=== PATIENT | male | born 1955 | race Caucasian/White ===

== ENCOUNTER 2023-12-19 14:47 | Inpatient (IN) | payer MEDICARE, OTHER, SELFPAY ==
[2023-12-19 12:19] VITALS: BP 92/58
--- NOTE | 2023-12-19 13:11 | ED.GENMED ---
History of Present Illness
General
Chief Complaint: Abdominal Symptoms
Source: patient
Exam Limitations: none
Time Seen by Provider: 12/19/23 12:53
Nursing documentation reviewed up to this point in time: agreed with
Travel History
Have you had any contact with someone who has COVID-19?: No
Do you have any symptoms of coronavirus? Fever > 100 degrees, chills, cough, shortness of breath, sore throat, loss of taste or smell, muscle aches, or headache?: No
History of Present Illness
History of Present Illness:
68-year-old male presents emergency room complaining of diarrhea for the past week. He is having multiple loose bowel movements per day. Watery, nonbloody
Past History
Past History
ED Past Medical History: HTN, Hypercholesterolemia, NIDDM and Psychiatric
ED Past Surgical History: None
Social History
Tobacco: Non-smoker
Alcohol: Daily
Drug: None
Personal:
Living: alone
Review of Systems
Review of Systems
Allergies reviewed?: Yes
All Other Systems: Not applicable
Constitutional: Reports no symptoms; Denies fever
EENT: Reports no symptoms
Respiratory: Reports no symptoms
Cardiac: Reports no symptoms
ABD/GI: Reports diarrhea; Denies abdominal pain
: Reports no symptoms
Musculoskeletal: Reports no symptoms
Skin: Reports no symptoms
Neurological: Reports no symptoms
Endocrine: Reports no symptoms
Hematologic/Lymphatic: Reports no symptoms
Psychiatric: Reports no symptoms
Phy Exam
Physical Exam
Physical Exam:
Physical Exam
General: blood pressure 92/58 afebrile, elevated BMI
Neck: supple. no meningeal signs. normal posterior pharynx
Heart: s1/s2 tachycardia, no murmur. equal radial
pulses.
HEENT: Pupils equal round reactive to light, EOMI
Lungs: no acute respiratory distress. clear bilaterally
Abdomen: normal bowel sounds. not tender. no CVAT
Neuro: alert and oriented. no focal neurological deficits cranial nerves II through XII intact
Skin: no rash
Psychiatric: well kept. interactive and cooperative
Extremities: no edema. no calf tenderness. negative homans. good distal pulses
Course
Orders/Labs/Results
Orders:
Orders
12/19/23 12:54
IV Insert/Care/Rem.- Treatment PRN
STOOL [C difficile Antigen & Toxins] Urgent
SATYA Source: Feces/Stool
Specimen Description:
Stool Culture Urgent
SATYA Source: Feces/Stool
Specimen Description:
12/19/23 12:56
IV Insert/Care/Rem.- Treatment PRN
12/19/23 13:12
Complete Blood Count/With Diff Urgent
Comprehensive Metabolic Panel Urgent
Magnesium Urgent
12/19/23 14:08
0.9% Sodium Chloride 1000 ml [Nss] 1,000 ml IV BOLUS
Abnormal Lab Results
12/19/23
13:12
MPV 10.7 H fL
(7.4-10.4)
Absolute Neuts (auto) 6.6 H 10^3/uL
(1.4-6.5)
Absolute Monos (auto) 1.7 H 10^3/uL
(0.1-0.6)
Lymphocytes % 13.3 L %
(20.5-51.1)
Monocytes % 17.4 H %
(1.7-9.3)
Sodium 134 L mmol/L
(135-145)
Potassium 3.3 L mmol/L
(3.5-5.1)
Carbon Dioxide 19 L mmol/L
(22-30)
BUN 38 H mg/dl
(9-20)
Creatinine 2.7 H mg/dL
(0.7-1.3)
Glucose 120 H mg/dl
(70-99)
Magnesium 1.5 L mg/dl
(1.6-2.3)
Total Bilirubin 1.7 H mg/dl
(0.2-1.3)
12/19/23 13:12
12/19/23 13:12
Vital Signs
Initial and Last Documented VS:
Initial Vital Signs
Temp Pulse Resp BP Pulse Ox
98.3 F 103 16 92/58 98
12/19/23 12:19 12/19/23 12:19 12/19/23 12:19 12/19/23 12:19 12/19/23 12:19
Last Documented Vital Signs
Temp Pulse Resp BP Pulse Ox
98.3 F 103 16 92/58 98
12/19/23 12:19 12/19/23 12:19 12/19/23 12:19 12/19/23 12:19 12/19/23 12:19
MDM/Problems Addressed
Differential Diagnosis Includes:
Infectious diarrhea, acute renal failure 60-year-old male with acute renal failure, diarrhea. Stool cultures pending. Admit to hospitalist.
MDM/Problems Addressed:
60-year-old male with acute renal failure, diarrhea. Stool cultures pending. Admit to hospitalist.
Chronic conditions affecting care: DM
Acute Exacerbation and/or Progression of Chronic Illness: DM
*Pulse Oximetry
Patient hypoxic: no
*EKG
Interpreted by ED Provider?: NA
*Panelboard Assembler Interpretation
Rate: Panelboard Assembler- N/A
*Critical Care Note
Total Time (30-74mins, 75-104mins- exclusive of procedures): Not Applicable
Patient Management
Social determinants of health affecting care: Living situation
Discussion with other providers: Hospitalist
Escalation/DeEscalation of care consider admission/obs:
admit indicated
ED Attending Note
-
Portions of this chart may have been created with voice recognition software.� Occasional wrong word or��sound alike� substitutions may have occurred due to the inherent limitations of voice recognition software.
Discharge Plan
Departure
Patient Disposition: Admit
Date of Disposition: 12/19/23
Time of Disposition: 14:11
Admit to: Med/Surg
Presentation/result/management discussed w/ accepting MD/DO: Hospitalist
Patient with high blood pressure during this ER visit?: No
Condition: Fair
Discharge Problem:
Diarrhea, Acute renal failure
Prescriptions:
No Action
No Current Medications
0
Referrals:
Rosy Elam DO [Family Provider] -
Interventions
Interventions:
*Risk Screen - Suicide Last Done: 12/19/23 12:23
*General Assessment Last Done: 12/19/23 12:23
*Neglect/Abuse Screening Last Done: 12/19/23 12:23
Discharge Date and Time
Print Language: TAMAZIGHT
[2023-12-19 13:20] LABS: % Basophils 0.4 % (0-2); % Eosinophils 1.1 % (0-6); % Immature Granulocytes 0.4 % (0-0.5); % Lymphocytes 13.3 % (20.5-51.1); % Monocytes 17.4 % (1.7-9.3); % Neutrophils 67.4 % (42.2-75.2); Absolute Eosinophils 0.1 10^3/uL (0-0.7); Absolute Lymphocytes 1.3 10^3/uL (1.2-3.4); Absolute Monocytes 1.7 10^3/uL (0.1-0.6); Absolute Neutrophils 6.6 10^3/uL (1.4-6.5); Hematocrit 44.9 % (39.0-52.0); Hemoglobin 16.2 g/dL (13.0-18.0); Mean Corp Hgb Conc. 36.1 g/dL (33.0-37.0); Mean Corpuscular Hgb 29.5 pg (27.0-31.0); Mean Corpuscular Volume 81.8 fL (80.0-94.0); Mean Platelet Volume 10.7 fL (7.4-10.4); Nucleated Red Blood Cells % 0 % (-); Platelet Count 223 10^3/uL (130-400); Red Blood Cell Count 5.49 10^6/uL (4.70-6.10); White Blood Cell Count 9.7 10^3/uL (4.8-10.8)
[2023-12-19 13:47] LABS: ALT (SGPT) 36 U/L (0-50); AST (SGOT) 35 U/L (17-59); Albumin 4.3 g/dl (3.5-5.0); Alkaline Phosphatase 101 U/L (38-126); Blood Urea Nitrogen 38 mg/dl (9-20); Calcium 9.2 mg/dl (8.4-10.2); Carbon Dioxide 19 mmol/L (22-30); Chloride 101 mmol/L (98-107); Glucose 120 mg/dl (70-99); Magnesium 1.5 mg/dl (1.6-2.3); Potassium 3.3 mmol/L (3.5-5.1); Sodium 134 mmol/L (135-145); Total Bilirubin 1.7 mg/dl (0.2-1.3); Total Protein 7.2 g/dl (6.3-8.2); eGFR 24.89
--- NOTE | 2023-12-19 14:16 | HPS.HSE ---
Family Physician
-
Family Physician: Rosy Elam
Chief Complaint
-
Diarrhea
History of Present Illness
Patient is 68 years old male with history hypertension, hyperlipidemia, diabetes mellitus, presented to the hospital with diarrhea. Patient has been having diarrhea for over a week. Initially diarrhea was a few times a day but then about the last
several days has been increasing 6-8 times a day, associated with nausea, no vomiting, watery stools. No abdominal pain. No fevers or chills. No antibiotics used recently. No chest pain or shortness of breath. He has not Had a colonoscopy in
the past but does have Cologuard in regular basis. Patient took his antihypertensive HERNANDEZ inhibitor today as well as his metformin for his diabetes mellitus. He also took his Mounjaro dose this week. In the ER, patient relatively comfortable upon
my evaluation, blood pressure noticed 92/58 and given bolus normal saline 1 L and reevaluate shortly, also his sodium 134, his potassium 3.3, and his BUN/creatinine 38/2.7 with glucose 120 and magnesium 1.5 and total bilirubin 1.7. Last creatinine
0.7 back in 2017. On review of the records in the past on his phone from his medical portal, his creatinine was normal just recently. He was referred to hospitalist service for further evaluation.
Medical History
Past Medical History
Past Medical History: Reports Other (Hypertension, hyperlipidemia, diabetes mellitus.)
Past Surgical History: Reports None
Social History
Tobacco: Non-smoker
Alcohol: None
Drug: None
Family History
Family History: Not pertinent
Allergies / Home Medications
Allergies reflects when Allergies were last updated in [facility].
Home Medications with original date entered in [facility]
Allergy/Medication List:
Allergies
Allergy/AdvReac Type Severity Reaction Status Date / Time
Penicillins Allergy Hives Verified 12/19/23 12:18
Home Medications
No Meds [No Current Medications] 09/28/16
Review of Systems
-
A 12 point ROS was completed and negative except as noted: Yes
Physical Exam
Vital Signs
Vital Signs
Temp Pulse Resp BP Pulse Ox
98.3 F 103 16 92/58 98
12/19/23 12:19 12/19/23 12:19 12/19/23 12:19 12/19/23 12:19 12/19/23 12:19
Physical exam:
General: Acutely ill
HEENT: Normocephalic, Atraumatic and Dry Mucous Membranes
Respiratory: Clear to Auscultation; Negative Wheezes, Rales or Rhonchi
Cardiac: Regular Rhythm and S1/S2
GI: Soft, Nontender and Nondistended
Musculoskeletal: No Clubbing, No Cyanosis and No Edema
Neuro: Awake, Alert and Oriented
Psych: Calm
Physical Exam
General: Other
Laboratory Results
-
12/19/23 13:12
12/19/23 13:12
Laboratory Results
Total Bilirubin 1.7 mg/dl (0.2-1.3) H 12/19/23 13:12
AST 35 U/L (17-59) 12/19/23 13:12
ALT 36 U/L (0-50) 12/19/23 13:12
Alkaline Phosphatase 101 U/L (38-126) 12/19/23 13:12
Impression/Plan
-
IMPRESSION:
Patient is 68 years old male history hypertension diabetes mellitus presented to the hospital with acute diarrhea and hypotension. Patient increased with comorbidity metallic therefore will need to be here and managed accordingly.
Impression:
Acute diarrhea
Hypotension
Acute kidney injury
Metabolic acidosis related to above
Hypomagnesemia
Hyperbilirubinemia
Hypokalemia
Hyponatremia
Hyperglycemia
Conditions prior to presentation:
Hypertension
Hyperlipidemia
Diabetes mellitus type 2
PLAN:
Aggressive IV fluids, another bolus normal saline 1 L and continue high maintenance IVF.
Okay with diabetic diet
Hold all antihypertensives and oral diabetic medications
Insulin sliding scale for now
Check bladder scan and straight cath as needed by protocol.
Monitor renal function and urine output
Replace electrolytes
Cardiac monitoring
Stool studies and C. difficile stool
Insulin sliding scale
Heparin SQ for DVT prophylaxis
CODE STATUS full code
Time spent 52 minutes
[2023-12-19] MEDS: NSS 1000 IV ×3 (14:22→23:25)
[2023-12-19] MEDS: MAGNESIUM SULFATE 50 IV (15:12)
[2023-12-19] MEDS: KCL 40 MEQ PO (15:13)
[2023-12-19] MEDS: KCL 160 MEQ IV (15:30)
[2023-12-19 16:17] LABS: Glucose - Point of Care 105 mg/dl (70-99)
[2023-12-19 16:19] VITALS: BMI 42.1
[2023-12-19 16:20] VITALS: BP 98/60
[2023-12-19] MEDS: HEPARIN 5000 UNITS SC ×2 (16:49→23:18)
[2023-12-19] MEDS: TUMS 2 TABLET PO ×2 (16:49→23:18)
[2023-12-19] MEDS: DITROPAN 5 MG PO ×2 (17:10→21:20)
--- NOTE | 2023-12-19 17:30 | PTCARENOTE ---
received pt to 3W room 326 from ED. Pt oriented to room, call velasquez within reach, resting comfortably, VSS stable, no reports of pain. NSS running in RAC @125ml/hr.
[2023-12-19 19:49] VITALS: BP 104/57
[2023-12-19] MEDS: SINGULAIR 10 MG PO (21:20)
[2023-12-19 21:24] LABS: Glucose - Point of Care 86 mg/dl (70-99)
[2023-12-19 23:22] VITALS: BP 112/65
[2023-12-20 03:06] VITALS: BP 121/79
[2023-12-20 05:30] LABS: % Basophils 0.5 % (0-2); % Eosinophils 2.8 % (0-6); % Immature Granulocytes 0.5 % (0-0.5); % Monocytes 15.1 % (1.7-9.3); % Neutrophils 50.1 % (42.2-75.2); Absolute Eosinophils 0.2 10^3/uL (0-0.7); Absolute Neutrophils 3.2 10^3/uL (1.4-6.5); Hematocrit 39.5 % (39.0-52.0); Mean Corp Hgb Conc. 35.4 g/dL (33.0-37.0); Mean Corpuscular Hgb 29.4 pg (27.0-31.0); Mean Platelet Volume 10.5 fL (7.4-10.4); Nucleated Red Blood Cells % 0 % (-); Platelet Count 136 10^3/uL (130-400); Red Blood Cell Count 4.76 10^6/uL (4.70-6.10); Red Cell Dist. Width 13.9 % (11.5-14.5); White Blood Cell Count 6.4 10^3/uL (4.8-10.8)
[2023-12-20 05:52] LABS: ALT (SGPT) 29 U/L (0-50); AST (SGOT) 28 U/L (17-59); Albumin 3.4 g/dl (3.5-5.0); Alkaline Phosphatase 86 U/L (38-126); Blood Urea Nitrogen 39 mg/dl (9-20); Carbon Dioxide 24 mmol/L (22-30); Chloride 103 mmol/L (98-107); Estimated Creatinine Clearance 50 ml/min; Glucose 93 mg/dl (70-99); Magnesium 1.8 mg/dl (1.6-2.3); Potassium 4.1 mmol/L (3.5-5.1); Sodium 135 mmol/L (135-145); Total Bilirubin 1.3 mg/dl (0.2-1.3); Total Protein 5.9 g/dl (6.3-8.2); eGFR 35.68
[2023-12-20 07:00] VITALS: BP 127/68
[2023-12-20] MEDS: NSS 1000 IV ×3 (07:55→23:17)
[2023-12-20] MEDS: ASPIR LOW (ENTERIC COATED) 162 MG PO (07:56)
[2023-12-20] MEDS: DITROPAN 5 MG PO ×3 (07:57→21:07)
[2023-12-20] MEDS: HEPARIN 5000 UNITS SC ×3 (07:57→23:17)
[2023-12-20] MEDS: PROSCAR 5 MG PO (07:57)
[2023-12-20 08:00] LABS: Glucose - Point of Care 123 mg/dl (70-99)
--- NOTE | 2023-12-20 08:57 | W.PN.HOSP.TC ---
Today's Communication/Plan
-
Continue IV fluids. Ultrasound kidneys. Stool cultures pending.
Assessment / Plan
Assessment / Plan
Physical exam:
General: Well Developed, Well Nourished and No Apparent Distress
HEENT: Normocephalic, Atraumatic and Moist Mucous Membranes
Respiratory: Clear to Auscultation; Negative Wheezes, Rales or Rhonchi
Cardiac: Regular Rhythm and S1/S2
GI: Soft, Nontender and Nondistended
Musculoskeletal: No Clubbing, No Cyanosis and No Edema
Neuro: Awake, Alert and Oriented
Psych: Calm
A/P:
Acute kidney injury:
Creatinine 2.7 trending down to 2.0 today
Continue IV fluids
Kidney ultrasound
Continue checking bladder scan for any retention
Acute diarrhea:
Stool studies pending
Stools for C. Diff came back negative (he told me he did use antibiotics 2 months ago but fortunately test came back reassuring).
Hypertension:
Continue hold HERNANDEZ inhibitor due to renal failure
Add IV hydralazine as needed.
Diabetes mellitus type 2:
Continue insulin sliding scale
Diabetic diet
Hemoglobin A1c 5.1
Hold oral hypoglycemics while in renal failure
Hypokalemia:
Repleted
Hypomagnesemia:
Repleted
Hyponatremia:
Improved back to normal
Hyperbilirubinemia:
Improved back to normal
Obesity:
Lifestyle changes modifications
He is already on weight loss medications as outpatient
DVT prophylaxis:
Heparin subcu
CODE STATUS:
Full code
Anticipated Discharge: 24 - 48 hours
Subjective/Interval History
-
Date of Service: December 20, 2023
Patient tells me diarrhea is slowing down. No abdominal pain nausea or vomiting. Afebrile
Objective Data
-
Labs:
Laboratory Results
12/20/23
05:07
WBC 6.4
Hgb 14.0
Hct 39.5
Plt Count 136 D
Sodium 135
Potassium 4.1
Chloride 103
Carbon Dioxide 24
BUN 39 H
Creatinine 2.0 H
Glucose 93
Calcium 9.0
Total Bilirubin 1.3
AST 28
ALT 29
Alkaline Phosphatase 86
Vital Signs:
Vital Signs
Temp Pulse Resp BP Pulse Ox
97.9 F 74 18 127/68 95
12/20/23 07:00 12/20/23 07:00 12/20/23 07:00 12/20/23 07:00 12/20/23 07:00
I&O
12/19/23 12/20/23 12/21/23
06:59 06:59 06:59
Intake Total 2460 / 2460
Balance 2460 / 2460
[2023-12-20 09:08] LABS: Glycohemoglobin (HgbA1c) 5.1 % (4.0-5.6)
[2023-12-20 10:48] VITALS: BP 156/80
[2023-12-20 11:53] LABS: Glucose - Point of Care 99 mg/dl (70-99)
[2023-12-20 15:00] VITALS: BP 148/78
[2023-12-20 16:45] LABS: Glucose - Point of Care 94 mg/dl (70-99)
[2023-12-20 19:05] VITALS: BP 158/86
[2023-12-20 21:04] LABS: Glucose - Point of Care 107 mg/dl (70-99)
[2023-12-20] MEDS: SINGULAIR 10 MG PO (21:07)
[2023-12-20 23:30] VITALS: BP 143/77
[2023-12-21 03:45] VITALS: BP 134/82
[2023-12-21 07:00] VITALS: BP 157/81
[2023-12-21 07:15] LABS: Glucose - Point of Care 97 mg/dl (70-99)
[2023-12-21] MEDS: DITROPAN 5 MG PO (07:22)
[2023-12-21] MEDS: NSS 1000 IV (07:22)
[2023-12-21] MEDS: HEPARIN 5000 UNITS SC (07:22)
[2023-12-21] MEDS: PROSCAR 5 MG PO (07:22)
[2023-12-21] MEDS: ASPIR LOW (ENTERIC COATED) 162 MG PO (07:22)
[2023-12-21 08:39] LABS: Blood Urea Nitrogen 26 mg/dl (9-20); Calcium 8.7 mg/dl (8.4-10.2); Carbon Dioxide 22 mmol/L (22-30); Chloride 109 mmol/L (98-107); Estimated Creatinine Clearance 100 ml/min; Glucose 83 mg/dl (70-99); Potassium 3.3 mmol/L (3.5-5.1); Sodium 140 mmol/L (135-145); eGFR > 60.00
[2023-12-21] MEDS: KCL 40 MEQ PO (09:29)
--- NOTE | 2023-12-21 09:30 | W.PN.HOSP.TC ---
Today's Communication/Plan
-
Discharge
Assessment / Plan
Assessment / Plan
Gen-AAOx3, NAD, morbid obesity
HEENT-NC, AT, anicteric, clear oral mm
Neck-supple
CV-reg, no M, +S1/S2
Lungs-clear B/L
Abd-soft, NT, ND
Ext-no edema
Musculoskeletal-no cyanosis, clubbing
Skin-warm and dry
Neuro-grossly non-focal
Psych-calm, cooperative
BON -suspect due to volume depletion, NSAID use. Volume depletion due to acute gastroenteritis. BON resolved. Creatinine 1.0. Diarrhea resolved. Hold NSAIDs for the next week, discussed with patient.
Acute gastroenteritis -improved. C. difficile toxin negative. Stool culture pending. Diarrhea lasted about a week. [id number] also got sick for 2 days.
Essential hypertension -resume home meds.
DM2 without hyperglycemia
Continue insulin sliding scale
Diabetic diet
Hemoglobin A1c 5.1
Hold oral hypoglycemics while in renal failure
Hypokalemia -due to diarrhea. Potassium 3.3 today, will replete.
Hypomagnesemia:
Repleted
Hypovolemic hyponatremia:
Improved back to normal
Hyperbilirubinemia:
Improved back to normal
Morbid obesity:
Lifestyle changes modifications
He is already on weight loss medications as outpatient
DVT prophylaxis:
Heparin subcu
CODE STATUS:
Full code
Dispo -medically stable for discharge. Outpatient follow-up.
32 minutes spent in discharge process.
Anticipated Discharge: Today
Subjective/Interval History
-
Date of Service: December 21, 2023
Patient seen and examined. Feeling better. No complaints. Had a semiformed bowel movement today.
Objective Data
-
Labs:
Laboratory Results
12/21/23
06:52
Sodium 140
Potassium 3.3 L
Chloride 109 H
Carbon Dioxide 22
BUN 26 H
Creatinine 1.0
Glucose 83
Calcium 8.7
Vital Signs:
Vital Signs
Temp Pulse Resp BP Pulse Ox
98.2 F 76 17 157/81 96
12/21/23 07:00 12/21/23 07:00 12/21/23 07:00 12/21/23 07:00 12/21/23 07:00
I&O
12/20/23 12/21/23 12/22/23
06:59 06:59 06:59
Intake Total 2460 / 2460 2940 / 2940
Balance 2460 / 2460 2940 / 2940
Review of Systems
-
History Source: Patient
All other systems: Reviewed and negative
--- NOTE | 2023-12-21 09:35 | W.DS.TRANS ---
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
-
Discharge Instructions:
Discharge Diagnosis/Procedures Acute kidney injury, acute gastroenteritis,
electrolyte abnormalities
Diet Diabetic, Carb Controlled
Activity As tolerated
Driving Restrictions As prior to admission
Bathing Restrictions None
Instructions:
Stand-Alone Forms:
Changes to Home Medications: No
Discharge Medications:
DC Medications w/original date entered in [facility]
aspirin 81 mg tablet,delayed release 162 mg PO DAILY 12/19/23
celecoxib 200 mg capsule (Celebrex) 200 mg PO BIDPRN PRN mild pain 12/19/23
finasteride 5 mg tablet 5 mg PO DAILY 12/19/23
fluticasone propionate 50 mcg/actuation nasal spray,suspension 1 spray intranasal DAILYPRN PRN allergies 12/19/23
lisinopril 20 mg tablet 20 mg PO DAILY 12/19/23
metformin 500 mg tablet,extended release 24 hr 1,000 mg PO DAILY 12/19/23
montelukast 10 mg tablet (Singulair) 10 mg PO HS 12/19/23
oxybutynin chloride 15 mg tablet,extended release 24 hr 15 mg PO HS 12/19/23
sildenafil 100 mg tablet 100 mg PO DAILYPRN PRN ed 12/19/23
tirzepatide 5 mg/0.5 mL subcutaneous pen injector (Mounjaro) 5 mg SC WE 12/19/23
Home Medication Changes
Pending Results: No
[2023-12-21 11:00] VITALS: BP 144/70
== END 2023-12-21 11:09 | disposition home or self-care (01) | DRG 683 ==
LOC: 3 WEST ACU 14:47
PROVIDERS: ADMITTING PHYSICIAN Hospitalist; ATTENDING PHYSICIAN Hospitalist; EMERGENCY PHYSICIAN Emergency Medicine; FAMILY PHYSICIAN Family Medicine
DX: N17.9 Acute kidney failure, unspecified (principal); E87.1 Hypo-osmolality and hyponatremia; E87.20 Acidosis, unspecified; Z68.41 Body mass index [BMI] 40.0-44.9, adult; I95.9 Hypotension, unspecified; E83.42 Hypomagnesemia; E87.6 Hypokalemia; I10 Essential (primary) hypertension; E11.65 Type 2 diabetes mellitus with hyperglycemia; K52.9 Noninfective gastroenteritis and colitis, unspecified; E66.01 Morbid (severe) obesity due to excess calories; E86.9 Volume depletion, unspecified
CPT/HCPCS: 80048; 80053; 82962; 83036; 83735; 85025; 87045; 87046; 87324; 87427; 87449; 96361; 96365; 96375; 99284

== ENCOUNTER 2024-02-07 08:19 | Emergency (ER) | payer MEDICARE, OTHER, SELFPAY ==
[2024-02-07 08:23] VITALS: BP 156/94
--- NOTE | 2024-02-07 10:30 | EDRN ---
Salvador Agustin in room w/pt
[2024-02-07 10:37] VITALS: BMI 43.6
--- NOTE | 2024-02-07 11:00 | WOUNDNOTE ---
WOUND/SKIN CARE NOTE: Pt identified by name and . L lateral mid to upper thigh.
--- NOTE | 2024-02-07 12:05 | ED.GENMED ---
History of Present Illness
General
Chief Complaint: Skin Problem
Source: patient
Time Seen by Provider: 02/07/24 10:13
History of Present Illness
History of Present Illness:
68-year-old male with past medical history of hypertension, hyperlipidemia and diabetes presenting to the emergency department for evaluation of an erythematous and tender left anterolateral thigh sore that he states has gotten gradually bigger over
the last few days. Patient did not attempt any medications prior to arrival and is otherwise denying any fevers or other infectious symptoms. Patient notes that he is a diabetic and states that his primary care doctor told him recently that he had
a very good hemoglobin A1c and currently takes metformin for his diabetes.
Past History
Past History
ED Past Medical History: HTN, Hypercholesterolemia, NIDDM and Psychiatric
ED Past Surgical History: None
Social History
Tobacco: Non-smoker
Alcohol: Daily
Drug: None
Personal:
Living: alone
Review of Systems
Review of Systems
All Other Systems: ROS reviewed and negative except as documented in HPI and ROS
Phy Exam
Physical Exam
Physical Exam:
GENERAL: Alert , in no apparent distress
EYE: conjunctiva clear
Head: Normocephalic atraumatic
NECK: Supple,
ENT: mmm.
LUNGS: no acute respiratory distress
NEUROLOGICAL: Alert and oriented
SKIN: Warm and dry, skin intact. On the left proximal lateral portion of the thigh there is an approximately 3 cm area of deep erythema with an additional 1 cm surrounding area of authorizer erythema with central induration but no fluctuance. No
streaking or lymphangitis
MUSCULOSKELETAL: well perfused.
PSYCH: Normal and appropriate interaction.
Scores
Heart Failure Risk
Heart Failure Risk Score: Not Applicable
Heart Score for Chest Pain Patients
STEMI patient?: Not applicable
Withdrawal Assessment of Alcohol
Withdrawal Assessment Completed?: Not applicable
Course
Vital Signs
Initial and Last Documented VS:
Initial Vital Signs
Temp Pulse Resp BP Pulse Ox
98 F 105 18 156/94 95
02/07/24 08:23 02/07/24 08:23 02/07/24 08:23 02/07/24 08:23 02/07/24 08:23
Last Documented Vital Signs
Temp Pulse Resp BP Pulse Ox
98 F 87 18 147/77 98
02/07/24 08:23 02/07/24 12:22 02/07/24 12:22 02/07/24 12:22 02/07/24 12:22
MDM/Problems Addressed
Differential Diagnosis Includes:
Cellulitis, abscess, ingrown hair
MDM/Problems Addressed:
68-year-old male presenting emergency department for evaluation of what appears to be an early abscess formation to his left lateral thigh. This has been present for the last 3 days and seems to be gradually worsening. Patient is a diabetic but
notes that his last hemoglobin A1c showed he had good glycemic control. I reviewed patient's lab work which showed that he was recently admitted earlier this year for an acute kidney injury secondary to dehydration from gastroenteritis but upon his
discharge was back at his usual renal function. Will treat with Bactrim to cover for MRSA. I did drawl with a skin marker for patient to see if infection seems to be improving or worsening. Return precautions discussed. Stable for discharge home.
Chronic conditions affecting care: DM
*Pulse Oximetry
Patient hypoxic: no
*Critical Care Note
Total Time (30-74mins, 75-104mins- exclusive of procedures): Not Applicable
Data Reviewed
Review of Other/Old Records Reveals: Labs and Records
Source: patient
ED Attending Note
-
Portions of this chart may have been created with voice recognition software.� Occasional wrong word or��sound alike� substitutions may have occurred due to the inherent limitations of voice recognition software.
Discharge Plan
Departure
Patient Disposition: Home (Routine Discharge)
Date of Disposition: 02/07/24
Time of Disposition: 12:05
Patient with high blood pressure during this ER visit?: Yes
Discharge Problem:
Abscess of left thigh
Instructions: Skin Abscess
Prescriptions:
New
sulfamethoxazole-trimethoprim [Bactrim DS] 800-160 mg tablet
1 tab PO BID 10 Days Qty: 20 0RF
No Action
celecoxib [Celebrex] 200 mg Capsule
200 mg PO BIDPRN PRN (Reason: mild pain)
Hold Instructions: Resume on 12/28/23.
oxybutynin chloride 15 mg Tablet Extended Release 24hr
15 mg PO HS
lisinopril 20 mg Tablet
20 mg PO DAILY
aspirin 81 mg Tablet,Delayed Release (Dr/Ec)
162 mg PO DAILY
sildenafil 100 mg Tablet
100 mg PO DAILYPRN PRN (Reason: ed)
montelukast [Singulair] 10 mg Tablet
10 mg PO HS
fluticasone propionate 50 mcg/actuation [place],Suspension
1 spray INTRANASAL DAILYPRN PRN (Reason: allergies)
metformin 500 mg Tablet Extended Release 24 Hr
1,000 mg PO DAILY
finasteride 5 mg Tablet
5 mg PO DAILY
Mounjaro 5 mg/0.5 mL Pen Injector
5 mg SC WE
Referrals:
Rosy Elam DO [Family Provider] -
Interventions
Interventions:
*Risk Screen - Suicide Last Done: 02/07/24 08:29
*General Assessment Last Done: 02/07/24 08:29
*Neglect/Abuse Screening Last Done: 02/07/24 08:29
ED- Fall Risk Assessment Last Done: 02/07/24 12:23
*ED COVID-19 Vaccine History Last Done: 02/07/24 08:29
*Nursing Disposition Last Done: 02/07/24 12:23
ED-Skin Assessment Last Done: 02/07/24 11:11
Discharge Date and Time
Discharge Date/Time: 02/07/24 12:23
Print Language: [place]
[2024-02-07 12:22] VITALS: BP 147/77
== END 2024-02-07 12:23 | disposition home or self-care (01) ==
LOC: EMR 08:19
PROVIDERS: EMERGENCY PHYSICIAN Emergency Medicine; FAMILY PHYSICIAN Family Medicine
DX: L02.416 Cutaneous abscess of left lower limb (principal); I10 Essential (primary) hypertension; E11.9 Type 2 diabetes mellitus without complications; E78.00 Pure hypercholesterolemia, unspecified
CPT/HCPCS: 99283

== ENCOUNTER 2025-06-24 15:59 | Inpatient (IN) | payer MEDICARE, OTHER, SELFPAY ==
[2025-06-24] VITALS (8 sets, daily range): BP systolic 112–136; BP diastolic 53–84; BMI 36.7; BMI 37.6
[2025-06-24] MEDS: TYLENOL 1000 MG PO (14:07)
[2025-06-24] MEDS: NSS 1000 IV ×3 (14:07→18:20)
[2025-06-24] MEDS: DUONEB 3 ML INH (14:09)
[2025-06-24 14:24] LABS: Hematocrit 43.9 % (39.0-52.0); Hemoglobin 15.5 g/dL (13.0-18.0); Mean Corp Hgb Conc. 35.3 g/dL (33.0-37.0); Mean Corpuscular Volume 84.9 fL (80.0-94.0); Platelet Count 148 10^3/uL (130-400); Red Cell Dist. Width 14.1 % (11.5-14.5)
[2025-06-24 14:28] LABS: Absolute Neutrophils -Man Diff 10.4 10^3/uL (1.4-6.5)
[2025-06-24 14:29] LABS: Normal RBC Morphology Yes; Platelets Checked Yes; Total Cells Counted 100
[2025-06-24] MEDS: AZACTAM 2000 MG IV ×2 (14:36→21:39)
--- NOTE | 2025-06-24 14:36 | ED.GENMED ---
History of Present Illness
General
Chief Complaint: Breathing Problem
Source: patient
Exam Limitations: none
Time Seen by Provider: 06/24/25 13:53
History of Present Illness
History of Present Illness:
Note:
CHIEF COMPLAINT(S)
Shortness of breath, right-sided chest pain.
HISTORY OF PRESENT ILLNESS
The patient is a 69-year-old male with a history of high blood pressure, who presents with shortness of breath and right-sided chest pain. The patient describes the pain as similar to a previous pneumothorax. He reports a recent upper respiratory
infection that began one week ago, noting an abrupt worsening of symptoms with significant fatigue around the third or fourth day of infection. He denies fever but reports chills and nasal congestion. The patient does not smoke and quit alcohol
consumption due to prior chest issues related to lifestyle choices. Despite his history of high blood pressure, which is controlled with lisinopril, he reports progressively worsening symptoms, including an oxygen saturation level of 85% on home
pulse oximetry, corroborated by 88% on room air upon examination. The patient noted a significant rise in heart rate to 120 bpm and a temperature of 100.4�F at presentation.
PAST MEDICAL AND SURGICAL HISTORY
The patient has a history of pneumothorax and unspecified chest issues in the past linked to alcohol use. He is currently on lisinopril for hypertension.
CHRONIC MEDICAL CONDITIONS SIGNIFICANTLY AFFECTING CARE
The patient has a history of hypertension, managed with lisinopril.
SOCIAL DETERMINANTS AFFECTING HEALTH
The patient previously consumed alcohol, which affected his chest health but has since quit. No current smoking or alcohol use is reported.
ALLERGIES
The patient has a history of an allergic reaction to penicillin, described as a near-fatal incident in childhood.
MEDICATIONS
The patient is on lisinopril for hypertension.
REVIEW OF SYSTEMS
- Respiratory: Shortness of breath, coughing, history of pneumothorax, chills, and nasal congestion
- Cardiovascular: Elevated heart rate noted at 120 bpm
- Constitutional: History of fever with current chills, fatigue
PHYSICAL EXAM
General: Alert, no acute distress.
Skin: Warm, dry.
Head: Normocephalic, atraumatic.
Neck: Supple, trachea midline.
Eyes, Ears, Nose, Mouth, and Throat: Oral mucosa moist, nasal congestion.
Cardiovascular: Heart regular in rate and rhythm, elevated heart rate at 120 bpm.
Respiratory: Respiratory distress observed, decreased O2 saturation at 88% on room air, scattered wheezes observed bilaterally.
Gastrointestinal: Abdomen nondistended.
Neurological: Alert and oriented to person, place, time, and situation, cranial nerves intact, no focal neurological deficit observed.
Psychiatric: Cooperative, appropriate mood and affect.
PROBLEM LIST
- Acute: Respiratory distress, probable pneumonia, elevated heart rate, decreased oxygen saturation.
- Chronic: Managed hypertension.
PLAN
- Admit the patient for further monitoring and treatment.
- Initiate supplemental oxygen therapy.
- Administer intravenous antibiotics for 1-1.5 days, then switch to oral antibiotics after stabilization.
- Provide bronchodilator treatment to ease breathing.
- Administer acetaminophen to manage fever and help control the heart rate.
- Monitor patients clinical status, aiming for improvement in oxygen saturation and symptom relief over the weekend.
DIFFERENTIAL DIAGNOSIS
The Differential Diagnosis includes, in no particular order and is not limited to:
1. Pneumonia
2. Pneumothorax
3. Chronic obstructive pulmonary disease exacerbation
4. Congestive heart failure
5. Pulmonary embolism
6. Acute bronchitis
7. Influenza
8. Viral upper respiratory infection
9. Asthma exacerbation
10. Pleural effusion
EKG
My independent EKG interpretation is:
- Time of EKG: Not specified
- Rhythm: Not specified
- Heart rate: Not specified
- NC interval: Not specified
- QRS duration: Not specified
- QT interval: Not specified
- [place]: Normal axis
- Abnormalities: No acute ischemic changes noted
(Note: There seems to be a seismology technical officer error with '[place]' and 'left axis of febiation.' Please clarify or revise for accurate findings.)
Disposition:
SUMMARY OF ENCOUNTER
A 69-year-old male with a history of hypertension presented to the emergency department with hypoxia, a cough, and a right-sided chest pain. He reported symptoms consistent with pneumonia. On examination, his temperature was 100.4�F, he exhibited
respiratory distress, and his oxygen saturation was decreased at 88% on room air. Lab tests revealed a white blood cell count of 12.1 with 37% bands, mild hyponatremia at 129, and an elevated lactic acid level of 5.7. A chest x-ray showed right
lower lobe pneumonia. Despite stable blood pressure, he presented with lactic acidosis, necessitating administration of intravenous fluids at a dose of 30 mL/kg of ideal body weight due to his obesity. Broad-spectrum antibiotics were ordered.
DISPOSITION
Admission for further management.
ASSESSMENT
Acute respiratory distress secondary to right lower lobe pneumonia, hypoxia, and lactic acidosis.
EMERGENCY TREATMENTS ADMINISTERED
- Intravenous fluids 30 mL/kg based on ideal body weight due to lactic acidosis.
- Broad-spectrum antibiotics initiated (specific medication not detailed).
MANAGEMENT OF THE PATIENTS CARE WAS DISCUSSED WITH
Case discussed with hospitalist regarding admission.
PLAN
- Admit for further monitoring and management.
- Continue supplemental oxygen therapy.
- Continue intravenous antibiotics, with a plan to switch to oral antibiotics upon stabilization.
- Monitor for improvement in respiratory status and oxygen saturation.
INDEPENDENT REVIEW OF LABS AND INTERPRETATION OF TESTS
My independent review of CBC indicates leukocytosis with a white blood cell count of 12.1 and 37% bands, suggestive of infection.
My independent review of CMP reveals mild hyponatremia (sodium level of 129).
My independent review of lactic acid levels indicates an elevation at 5.7, consistent with lactic acidosis.
My independent chest x-ray interpretation confirms right lower lobe pneumonia.
MEDICATION RECONCILIATION
- Broad-spectrum antibiotics initiated in the emergency department.
MEDICAL DECISION MAKING
-Complexity of Data Reviewed:
Chronic conditions affecting care: Hypertension managed with lisinopril.
Differential diagnosis: Pneumonia, pneumothorax, chronic obstructive pulmonary disease exacerbation, congestive heart failure, pulmonary embolism, acute bronchitis, influenza, viral upper respiratory infection, asthma exacerbation, pleural effusion.
-Data:
Category 1: Tests and documents.
My independent review of CBC, CMP, and lactic acid levels guided treatment for infection and lactic acidosis.
-Risk:
Due to the severity of the presentation and elevated lactic acid, the decision to admit the patient for more intensive monitoring and treatment was made.
DIAGNOSIS
Pneumonia, unspecified organism (J18.9).
Lactic acidosis (E87.2).
Hypoxia, acute (R09.02).
Past History
Past History
ED Past Medical History: HTN, Hypercholesterolemia, NIDDM and Psychiatric
ED Past Surgical History: None
Social History
Tobacco: Non-smoker
Alcohol: Daily
Drug: None
Personal:
Living: alone
Phy Exam
Physical Exam
Physical Exam:
.
Scores
Heart Failure Risk
Heart Failure Risk Score: Not Applicable
Sepsis
Sepsis Screening
Sepsis Assessment: Septic Shock
Sepsis Screening: Lactate >/=4mmol/L
Sepsis Screen
Sepsis Screen: Septic Shock
Date: 06/24/25
Time: 15:11
Course
Orders/Labs/Results
Orders:
Orders
06/24/25 13:31
EKG [Electrocardiogram (*1)] Urgent
Reason for Study: Shortness of Breath
CR Chest - 2 Views Urgent
Comment:
Reason For Exam: pain
06/24/25 13:32
EKG- Treatment ONCE
06/24/25 14:01
Lactic Acid Urgent
Blood Culture Urgent
SATYA Source: Blood/Venous
Specimen Description:
0.9% Sodium Chloride 1000 ml [Nss] 1,000 ml IV BOLUS
06/24/25 14:02
Acetaminophen [Tylenol] 1,000 mg PO NOW STA
Ipratropium/Albuterol Sulfate [Duoneb] 3 ml INH R NOW STA
06/24/25 14:03
Basic Metabolic Panel Urgent
Complete Blood Count/With Diff Urgent
Manual Differential Urgent
06/24/25 14:14
Blood Culture Urgent
SATYA Source: Blood/Venous
Specimen Description:
06/24/25 14:30
Aztreonam [Azactam] 2,000 mg IV NOW STA
06/24/25 14:33
0.9% Sodium Chloride 1000 ml [Nss] 2,300 ml IV NOW STA
06/24/25 14:34
0.9% Sodium Chloride 1000 ml [Nss] 1,000 ml IV BOLUS
0.9% Sodium Chloride 500 ml [Nss] 500 ml IV BOLUS
06/24/25 14:35
Sterile Water [Sterile Water For Injection] 10 ml .ROUTE .[facility]
06/24/25 15:01
Vancomycin [Vancocin] 2,000 mg 0.9% Sodium Chloride 500 ml [Nss] 500 ml IV NOW
Abnormal Lab Results
06/24/25 06/24/25
14:01 14:03
WBC 12.1 H 10^3/uL
(4.8-10.8)
MPV 10.8 H fL
(7.4-10.4)
Abs Neuts (Manual) 10.4 H 10^3/uL
(1.4-6.5)
Band Neutrophils 37 H %
(0-3)
Lymphocytes (Manual) 7 L %
(20-51)
Sodium 129 L mmol/L
(135-145)
Carbon Dioxide 20 L mmol/L
(22-30)
BUN 30 H mg/dl
(9-20)
Glucose 101 H mg/dl
(70-99)
Lactic Acid 5.7 H* mmol/L
(0.7-2.0)
06/24/25 14:03
06/24/25 14:44
Vital Signs
Initial and Last Documented VS:
Initial Vital Signs
Temp Pulse Resp BP Pulse Ox
98.7 F 119 24 119/84 86
06/24/25 13:36 06/24/25 13:36 06/24/25 13:36 06/24/25 13:36 06/24/25 13:36
Last Documented Vital Signs
Temp Pulse Resp BP Pulse Ox
100.4 F H 109 34 121/69 92
06/24/25 14:04 06/24/25 14:45 06/24/25 14:45 06/24/25 13:52 06/24/25 14:45
*Pulse Oximetry
SaO2: 89
Oxygen Mode of Delivery: Room air
Patient hypoxic: yes
*Critical Care Note
Total Time (30-74mins, 75-104mins- exclusive of procedures): 45 minutes
ED Attending Note
-
Portions of this chart may have been created with voice recognition software.� Occasional wrong word or��sound alike� substitutions may have occurred due to the inherent limitations of voice recognition software.
Discharge Plan
Departure
Patient Disposition: Admit
Date of Disposition: 06/24/25
Time of Disposition: 14:36
Admit to: Telemetry
Presentation/result/management discussed w/ accepting MD/DO: Hospitalist
Discharge Problem:
Pneumonia, Septic shock, Acidosis, lactic
Prescriptions:
No Action
oxybutynin chloride 15 mg Tablet Extended Release 24hr
15 mg PO HS
lisinopril 20 mg Tablet
20 mg PO DAILY
aspirin 81 mg Tablet,Delayed Release (Dr/Ec)
81 mg PO DAILY
montelukast [Singulair] 10 mg Tablet
10 mg PO HS
finasteride 5 mg Tablet
5 mg PO DAILY
Mounjaro 5 mg/0.5 mL Pen Injector
7.5 mg SC WE
celecoxib [Celebrex] 200 mg Capsule
200 mg PO DAILYPRN PRN (Reason: MILD PAIN)
ibuprofen [Advil] 200 mg Tablet
200 mg PO Q6HPRN PRN (Reason: MILD PAIN)
Interventions
Interventions:
*Risk Screen - Suicide Last Done: 06/24/25 13:36
*General Assessment Last Done: 06/24/25 14:23
*Neglect/Abuse Screening Last Done: 06/24/25 14:23
*ED- Fall Risk Assessment Last Done: 06/24/25 14:23
*ED COVID-19 Vaccine History Last Done: 06/24/25 14:23
*ED Influenza Vaccine History Last Done: 06/24/25 14:23
ED- Cardiac Assessment Last Done: 06/24/25 14:17
ED- Pulmonary Assessment Last Done: 06/24/25 14:17
Discharge Date and Time
Print Language: WOLOF
[2025-06-24] MEDS: NSS 500 IV (14:45)
[2025-06-24 15:05] LABS: Blood Urea Nitrogen 30 mg/dl (9-20); Calcium 8.6 mg/dl (8.4-10.2); Carbon Dioxide 20 mmol/L (22-30); Chloride 99 mmol/L (98-107); Estimated Creatinine Clearance 76 ml/min; Glucose 101 mg/dl (70-99); Sodium 129 mmol/L (135-145); eGFR > 60.00
[2025-06-24] MEDS: VANCOCIN 540 MG IV (15:14)
--- NOTE | 2025-06-24 15:32 | HPS.HSE ---
Family Physician
-
Family Physician: Rosy Elam
Chief Complaint
-
cough
History of Present Illness
69-year-old male past medical history of spontaneous pneumothorax status post chest tube in the past, hypertension, hyperlipidemia, diabetes, BPH, presenting with productive cough, shallow breathing for the past 3 to 4 days. He felt like he had a
viral URI the past week which had recovered. He has chest pain in his right side of his chest when he takes in a deep breath which reminded him of when he previously had a pneumothorax on that side. He has chills but denies fever. Denies vomiting
or diarrhea.
He denies smoking or alcohol use.
Medical History
Past Medical History
Past Medical History: Reports Other (spontaneous pneumothorax status post chest tube in the past, hypertension, hyperlipidemia, diabetes, BPH)
Past Surgical History: Reports Other (cyst removal back )
Social History
Tobacco: Non-smoker
Alcohol: None
Drug: None
Family History
Family History: Not pertinent
Allergies / Home Medications
Allergies reflects when Allergies were last updated in [facility].
Home Medications with original date entered in [facility]
Allergy/Medication List:
Allergies
Allergy/AdvReac Type Severity Reaction Status Date / Time
Penicillins Allergy Hives Verified 06/24/25 13:36
Home Medications
aspirin 81 mg tablet,delayed release 81 mg PO DAILY 12/19/23
finasteride 5 mg tablet 5 mg PO DAILY Urinary Issue 12/19/23
lisinopril 20 mg tablet 20 mg PO DAILY Blood Pressure 12/19/23
montelukast 10 mg tablet (Singulair) 10 mg PO HS Lung/Breathing Issues 12/19/23
oxybutynin chloride 15 mg tablet,extended release 24 hr 15 mg PO HS Urinary Issue 12/19/23
tirzepatide 5 mg/0.5 mL subcutaneous pen injector (Mounjaro) 7.5 mg SC WE 12/19/23
celecoxib 200 mg capsule (Celebrex) 200 mg PO DAILYPRN PRN MILD PAIN 06/24/25
ibuprofen 200 mg tablet (Advil) 200 mg PO Q6HPRN PRN MILD PAIN 06/24/25
Review of Systems
-
History Source: Patient
A 12 point ROS was completed and negative except as noted: Yes
Constitutional: Reports No Symptoms
EENT: Reports No Symptoms
Respiratory: Reports No Symptoms
Cardiac: Reports No Symptoms
Abdomen/GI: Reports No Symptoms
: Reports No Symptoms
Musculoskeletal: Reports No Symptoms
Skin: Reports No Symptoms
Neurological: Reports No Symptoms
Endocrine: Reports No Symptoms
Hematologic/Lymphatic: Reports No Symptoms
Psych: Reports No Symptoms
Physical Exam
Vital Signs
Vital Signs
Temp Pulse Resp BP Pulse Ox
100.4 F H 109 34 121/69 92
06/24/25 14:04 06/24/25 14:45 06/24/25 14:45 06/24/25 13:52 06/24/25 14:45
Physical Exam
General: Well Developed, Well Nourished and No Apparent Distress
HEENT: NormoCephalic, Moist mucous membranes and Atraumatic
Respiratory: Clear
Cardiac: S1/S2 and Regular Rhythm; No Murmur or Rub
GI: Soft, Non Tender, Non Distended and Normal Bowel Sounds; No Organomegaly
Rectal: Deferred by Provider
Musculoskeletal: No Clubbing, No Cyanosis and No Edema
Skin: No Rash
Neuro: Nonfocal/grossly intact
Laboratory Results
-
06/24/25 14:03
06/24/25 14:44
Laboratory Results
Lactic Acid 5.7 mmol/L (0.7-2.0) H* 06/24/25 14:01
Total Bilirubin Cancelled 06/24/25 14:44
AST Cancelled 06/24/25 14:44
ALT Cancelled 06/24/25 14:44
Alkaline Phosphatase Cancelled 06/24/25 14:44
Data Reviewed
-
Lab Data: Labs Reviewed by me
Old Records: Reviewed
Impression/Plan
-
IMPRESSION:
PLAN:
# Sepsis (lactic acidosis) secondary to right lower lobe pneumonia
-Chest x-ray shows consolidative parenchymal opacity within the right lower lobe likely pneumonia
-Lactic acid 5.7, leukocytosis of 12
-Check blood cultures
-Check sputum culture, strep antigen, Legionella, MRSA
- IV fluids
- vancomycin/aztreonam
History of spontaneous pneumothorax on the right side
Essential hypertension
- Hold lisinopril
Hyperlipidemia
Type 2 diabetes
- Insulin sliding scale
BPH
-Continue finasteride
Full code
DVT prophylaxis�Lovenox
Regular diet
--- NOTE | 2025-06-24 16:00 | CM ---
Chart reviewed and spoke with patient and brother Jorge A
Lives in a 2SH with brother. He lives on first floor and brother lives on 2nd floor
Independent with ADLs and ambulation
no DME
PCP Dr. Rosy Elam
Pharmacy [facility]
no hx of VN
no hx of SNF
DCP is to go home with no services
Brother can provide transportation at [place]
CM will continue to follow up for dcp needs
[2025-06-24 17:20] LABS: COVID-19 Antigen Negative (Negative)
[2025-06-24 18:02] LABS: Glucose - Point of Care 95 mg/dl (70-99)
[2025-06-24] MEDS: LOVENOX 40 MG SC (18:22)
--- NOTE | 2025-06-24 18:23 | PHA.VAN.IN ---
Assessment
- Assessment
Renal Function: Appears similar to baseline
Maximum Temperature: 100.4F
Minimum Temperature: 98.7F
Concomitant Antimicrobials: Aztreonam
AUC Dosing Plan
- Dosing Variables
Dosing Weight (kg): 122
Dosing CrCl (ml/min): 76
Vd coefficient (L/kg): 0.7
- Empiric Dosing
Initial / Loading Dose: 2000MG
Maintenance Regimen: 1250MG Q12H
Estimated AUC (mcg*h/mL): 456
Estimated Peak (mcg*h/mL): 26.4
Estimated Trough (mcg/ml): 13
Estimated Half Life (H): 10.3
- Monitoring
No levels ordered at this time: Awaiting steady state
MRSA Screen: Ordered per protocol
Pharmacokinetics Vancomycin I
- -
Patient Age: 69
Patient Sex: Male
Vancomycin Day #: 1
Indication: Pulmonary/Respiratory
Requesting Provider: Royer
Pertinent Antimicrobial Allergies:
Penicillins (hives)
Height / Weight:
Height 5 ft 11 in
Actual Weight 122.289 kg
Pertinent Past Medical History: remote spontaneous R PTX s/p chest tube placement, URI within past week
- Vital Signs / Lab Results
Temp Pulse Resp BP Pulse Ox
98.8 F 102 18 136/74 93
06/24/25 17:53 06/24/25 17:53 06/24/25 17:53 06/24/25 17:53 06/24/25 17:53
Lab Results - Hematology
06/24/25
14:03
WBC 12.1 H
Band Neutrophils 37 H
Lab Results - Chemistry
06/24/25 06/24/25
14:03 14:44
BUN 30 H Cancelled
Creatinine 1.2 Cancelled
Estimated Creat Clear 76 Cancelled
Albumin Cancelled Cancelled
06/24/25
14:01
Lactic Acid 5.7 H*
[2025-06-24 21:24] LABS: Glucose - Point of Care 141 mg/dl (70-99)
[2025-06-24] MEDS: SINGULAIR 10 MG PO (21:39)
[2025-06-24] MEDS: STERILE WATER FOR INJECTION 10 ML IV (21:39)
[2025-06-24] MEDS: DITROPAN 5 MG PO (21:39)
[2025-06-24] MEDS: ROBITUSSIN DM 10 ML PO (22:31)
[2025-06-24] MEDS: AFRIN NASAL SPRAY 2 SPRAYS NASAL (22:33)
[2025-06-25] VITALS (7 sets, daily range): BP systolic 95–129; BP diastolic 62–71
[2025-06-25] MEDS: TYLENOL 650 MG PO ×2 (03:12→17:00)
[2025-06-25] MEDS: ROBITUSSIN DM 10 ML PO (03:16)
[2025-06-25] MEDS: NSS 1000 IV (03:18)
[2025-06-25] MEDS: STERILE WATER FOR INJECTION 10 ML IV (05:04)
[2025-06-25] MEDS: AZACTAM 2000 MG IV (05:04)
[2025-06-25] MEDS: VANCOCIN 275 MG IV (05:05)
[2025-06-25 07:48] LABS: ALT (SGPT) 16 U/L (0-50); AST (SGOT) 21 U/L (17-59); Albumin 2.7 g/dl (3.5-5.0); Alkaline Phosphatase 52 U/L (38-126); Blood Urea Nitrogen 31 mg/dl (9-20); Calcium 7.9 mg/dl (8.4-10.2); Carbon Dioxide 22 mmol/L (22-30); Chloride 102 mmol/L (98-107); Estimated Creatinine Clearance 103 ml/min; Glucose 88 mg/dl (70-99); Potassium 3.8 mmol/L (3.5-5.1); Sodium 128 mmol/L (135-145); Total Protein 5.0 g/dl (6.3-8.2); eGFR > 60.00
[2025-06-25 07:52] LABS: Hematocrit 33.9 % (39.0-52.0); Hemoglobin 11.9 g/dL (13.0-18.0); Mean Corp Hgb Conc. 35.1 g/dL (33.0-37.0); Mean Corpuscular Volume 86.0 fL (80.0-94.0); Red Cell Dist. Width 14.3 % (11.5-14.5)
--- NOTE | 2025-06-25 08:12 | PHA.VAN.FU ---
Vancomycin Assessment / Plan
- Assessment
Renal Function: Stable
WBC's are: Trending Down
In the past 24 hrs, patient has been: Febrile (100.4F)
Concomitant Antimicrobials: AZTREONAM
- Dosing Plan
Continue: 1250MG Q12H
- Monitoring Plan
No level(s) ordered at this time: CONSIDER AT STEADY STATE
- Follow Up
Pharmacy will continue to follow.
Vancomycin Follow UP
- -
Patient Age: 69
Patient Sex: Male
Vancomycin Day #: 2
Indication: Pulmonary/Respiratory
Requesting Provider: Royer
Pertinent Antimicrobial Allergies:
Penicillins (hives)
Height / Weight:
Height 5 ft 11 in
Actual Weight 122.289 kg
Pertinent Past Medical History: remote spontaneous R PTX s/p chest tube placement, URI within past week
- Vital Signs / Lab Results
Temp Pulse Resp BP Pulse Ox
98.9 F 96 20 127/71 98
06/25/25 05:16 06/25/25 05:16 06/25/25 05:16 06/25/25 05:16 06/25/25 03:20
Lab Results - Hematology
06/24/25 06/25/25
14:03 06:09
WBC 12.1 H 6.0
Band Neutrophils 37 H
Lab Results - Chemistry
06/24/25 06/24/25 06/25/25
14:03 14:44 06:09
BUN 30 H Cancelled 31 H
Creatinine 1.2 Cancelled 0.9
Estimated Creat Clear 76 Cancelled 103
Albumin Cancelled Cancelled 2.7 L
06/24/25 06/24/25 06/24/25
14:01 18:08 23:35
Lactic Acid 5.7 H* 4.7 H* 3.4 H
06/25/25
02:47
Lactic Acid 2.0
[2025-06-25 08:28] LABS: Glucose - Point of Care 184 mg/dl (70-99)
[2025-06-25 08:29] LABS: Nucleated Red Blood Cells % 0 % (-); Platelet Count 75 10^3/uL (130-400)
[2025-06-25 08:39] LABS: Absolute Neutrophils -Man Diff 5.1 10^3/uL (1.4-6.5)
[2025-06-25 08:40] LABS: Normal RBC Morphology Yes; Platelets Checked Yes; Total Cells Counted 100
[2025-06-25] MEDS: PROSCAR 5 MG PO (08:43)
[2025-06-25] MEDS: ASPIR LOW (ENTERIC COATED) 81 MG PO (08:43)
[2025-06-25] MEDS: DITROPAN 5 MG PO ×3 (08:43→21:51)
[2025-06-25] MEDS: NON-FORMULARY ITEM 1 UNIT NASAL ×2 (08:45→20:09)
[2025-06-25 09:17] LABS: Hepatitis C Antibody Negative (Negative)
[2025-06-25 10:07] LABS: Hematocrit 33.1 % (39.0-52.0); Hemoglobin 12.0 g/dL (13.0-18.0)
[2025-06-25 11:21] LABS: Glycohemoglobin (HgbA1c) 4.8 % (4.0-5.9)
--- NOTE | 2025-06-25 11:52 | W.PN.HOSP.TC ---
Today's Communication/Plan
-
Antibiotics.
Assessment / Plan
Assessment / Plan
Physical exam:
General: Acutely ill
HEENT: Normocephalic, Atraumatic and Moist Mucous Membranes
Respiratory: Coarse rhonchi on the right base; Negative Wheezes, Rales
Cardiac: Regular Rhythm and S1/S2
GI: Soft, Nontender and Nondistended
Musculoskeletal: No Clubbing, No Cyanosis and No Edema
Neuro: Awake, Alert and Oriented, no neurological deficit
Psych: Calm
A/P:
Sepsis with endorgan damage (lactic acidosis) due to strep pneumonia:
Switch IV antibiotics (aztreonam and vancomycin) to IV Levaquin 750 mg daily
Strep pneumo antigen positive
Blood cultures pending
Stop IV fluid
Bandemia still high but WBC trending down
Hyponatremia:
Hyponatremia workup today
Decreased oral fluid intake
Trend sodium in a.m.
Hypertension:
Continue holding antihypertensive
Diabetes mellitus type 2:
Changed to diabetic diet
Continue insulin sliding scale
Anemia:
Likely dilutional but continue to monitor
BPH:
Continue Proscar
DVT prophylaxis:
Lovenox SQ
CODE STATUS:
Full code
Total time spent on today's encounter was 52 minutes which included time spent in counseling the patient/family regarding diagnosis and treatment plan as listed above, goals of care, and symptom management. Case was discussed with nursing staff,
specialists, and care coordinators/case management. All labs and imaging personally reviewed by me. Remainder the time spent in detailed review of previous records, lab data, imaging, and other medical provider documentation.
Anticipated Discharge: 24 - 48 hours
Subjective/Interval History
-
Date of Service: June 25, 2025
Patient feels better overall, less cough and less shortness of breath.
Objective Data
-
Labs:
Laboratory Results
06/25/25 06/25/25
06:09 10:00
WBC 6.0
Hgb 11.9 L D 12.0 L
Hct 33.9 L 33.1 L
Plt Count 75 L D
Sodium 128 L
Potassium 3.8
Chloride 102
Carbon Dioxide 22
BUN 31 H
Creatinine 0.9
Glucose 88
Calcium 7.9 L
Total Bilirubin 2.8 H
AST 21
ALT 16
Alkaline Phosphatase 52
Vital Signs:
Vital Signs
Temp Pulse Resp BP Pulse Ox
97.4 F 86 16 124/62 93
06/25/25 07:10 06/25/25 07:10 06/25/25 07:10 06/25/25 07:10 06/25/25 07:10
I&O
06/24/25 06/25/25 06/26/25
06:59 06:59 06:59
Intake Total 1475 / 1475
Output Total 1150 / 1150
Balance 325 / 325
[2025-06-25 11:57] LABS: Glucose - Point of Care 102 mg/dl (70-99)
[2025-06-25] MEDS: LEVAQUIN 150 IV (13:44)
[2025-06-25 16:41] LABS: Glucose - Point of Care 92 mg/dl (70-99)
[2025-06-25] MEDS: LOVENOX 40 MG SC (17:00)
[2025-06-25 21:11] LABS: Glucose - Point of Care 97 mg/dl (70-99)
[2025-06-25] MEDS: SINGULAIR 10 MG PO (21:51)
[2025-06-26 03:07] VITALS: BP 126/66
[2025-06-26 07:45] VITALS: BP 135/71
[2025-06-26 08:16] LABS: Glucose - Point of Care 74 mg/dl (70-99)
--- NOTE | 2025-06-26 08:40 | W.PN.HOSP.TC ---
Today's Communication/Plan
-
Discharge planning today
Assessment / Plan
Assessment / Plan
Physical exam:
General: No acute distress
HEENT: Normocephalic, Atraumatic and Moist Mucous Membranes
Respiratory: Clear to auscultation bilateral; Negative Wheezes, Rales
Cardiac: Regular Rhythm and S1/S2
GI: Soft, Nontender and Nondistended
Musculoskeletal: No Clubbing, No Cyanosis and No Edema
Neuro: Awake, Alert and Oriented, no neurological deficit
Psych: Calm
A/P:
Sepsis with endorgan damage (lactic acidosis) due to strep pneumonia:
Switch IV antibiotics (aztreonam and vancomycin) to IV Levaquin 750 mg daily
Strep pneumo antigen positive
Blood cultures no growth
Off IV fluid
Bandemia was high but WBC trending down yesterday but today no reported. WBC 6.8 today.
Hyponatremia:
Resolved
Fluid restriction
Trend sodium as outpatient
Hypertension:
Continue holding antihypertensive and resume upon discharge
Diabetes mellitus type 2:
Changed to diabetic diet
Continue insulin sliding scale
Anemia:
Likely dilutional but continue to monitor as outpatient
BPH:
Continue Proscar
DVT prophylaxis:
Lovenox SQ
CODE STATUS:
Full code
Anticipated Discharge: Today
Subjective/Interval History
-
Date of Service: June 26, 2025
Patient feels much improved. Afebrile
Objective Data
-
Labs:
Laboratory Results
06/26/25
07:43
WBC Pending
Hgb Pending
Hct Pending
Plt Count Pending
Sodium Pending
Potassium Pending
Chloride Pending
Carbon Dioxide Pending
BUN Pending
Creatinine Pending
Glucose Pending
Calcium Pending
Vital Signs:
Vital Signs
Temp Pulse Resp BP Pulse Ox
99.3 F 81 20 126/66 95
06/26/25 03:07 06/26/25 03:07 06/26/25 03:07 06/26/25 03:07 06/26/25 03:07
I&O
06/25/25 06/26/25 06/27/25
06:59 06:59 06:59
Intake Total 1475 / 1475 960 / 960
Output Total 1150 / 1150 3300 / 3300
Balance 325 / 325 -2340 / -2340
[2025-06-26 08:53] LABS: Hematocrit 34.6 % (39.0-52.0); Hemoglobin 11.9 g/dL (13.0-18.0); Mean Corp Hgb Conc. 34.4 g/dL (33.0-37.0); Mean Corpuscular Volume 86.9 fL (80.0-94.0); Nucleated Red Blood Cells % 0 % (-); Platelet Count 107 10^3/uL (130-400); Red Cell Dist. Width 14.5 % (11.5-14.5)
[2025-06-26] MEDS: PROSCAR 5 MG PO (08:58)
[2025-06-26] MEDS: DITROPAN 5 MG PO (08:58)
[2025-06-26] MEDS: ASPIR LOW (ENTERIC COATED) 81 MG PO (08:58)
[2025-06-26 09:35] LABS: Blood Urea Nitrogen 18 mg/dl (9-20); Calcium 8.5 mg/dl (8.4-10.2); Carbon Dioxide 24 mmol/L (22-30); Chloride 108 mmol/L (98-107); Estimated Creatinine Clearance > 125 ml/min; Glucose 83 mg/dl (70-99); Potassium 3.9 mmol/L (3.5-5.1); Sodium 136 mmol/L (135-145); eGFR > 60.00
[2025-06-26] MEDS: NON-FORMULARY ITEM 1 UNIT NASAL (11:00)
--- NOTE | 2025-06-26 11:15 | CM ---
Patient seen bedside.
Per patient possible dc home today.
Wean oxygen.
Patients brother will transport.
IMM reviewed and signed.
Plan: home no needs once medically cleared.
p
[2025-06-26 11:19] LABS: Glucose - Point of Care 96 mg/dl (70-99)
[2025-06-26 11:20] VITALS: BP 135/75
[2025-06-26] MEDS: LEVAQUIN 150 IV (13:33)
[2025-06-26] MEDS: DITROPAN PO (16:00)
== END 2025-06-26 17:33 | disposition home or self-care (01) | DRG 871 ==
LOC: 4 EAST ACU 15:59
PROVIDERS: Physician Assistant; Registered Nurse; ADMITTING PHYSICIAN Hospitalist; ATTENDING PHYSICIAN Hospitalist; EMERGENCY PHYSICIAN Emergency Medicine; FAMILY PHYSICIAN Family Medicine
DX: A41.9 Sepsis, unspecified organism (principal); J18.9 Pneumonia, unspecified organism; R65.21 Severe sepsis with septic shock; E87.20 Acidosis, unspecified; E87.1 Hypo-osmolality and hyponatremia; I10 Essential (primary) hypertension; E11.9 Type 2 diabetes mellitus without complications; N40.0 Benign prostatic hyperplasia without lower urinary tract symptoms; D64.9 Anemia, unspecified; Z11.52 Encounter for screening for COVID-19
CPT/HCPCS: 71046; 80048; 80053; 82962; 83036; 83605; 83930; 83935; 84300; 85014; 85018; 85025; 86803; 87040; 87070; 87205; 87449; 87641; 87811; 87899; 93005; 94640; 96361; 96365; 96366; 96375; 99291